=== PATIENT | female | born 1935 | race Native Hawaiian/Other Pacific Islander ===

== ENCOUNTER 2016-08-17 08:43 | Inpatient (IN) | payer OTHER | END 2016-09-17 08:00 | disposition still patient (30) | LOC: PAVA 08:43 | PROVIDERS: ADMIT Internal Medicine | DX: Z51.89 Encounter for other specified aftercare (principal) ==

== ENCOUNTER 2016-09-17 09:00 | Inpatient (IN) | payer OTHER | END 2016-10-18 08:43 | disposition still patient (30) | LOC: PAVA 09:00 | PROVIDERS: ADMIT Internal Medicine | DX: Z51.89 Encounter for other specified aftercare (principal) ==

== ENCOUNTER 2016-10-11 09:41 | Outpatient (CLI) | payer BC, OTHER | END 2016-10-11 23:40 | disposition home or self-care (01) | LOC: CT 09:41 | DX: S06.5X0A Traumatic subdural hemorrhage without loss of consciousness, initial encounter (principal) ==

== ENCOUNTER 2016-10-18 09:27 | Inpatient (IN) | payer OTHER | END 2016-11-15 08:19 | disposition still patient (30) | LOC: PAVA 09:27 | PROVIDERS: ADMIT Internal Medicine | DX: Z51.89 Encounter for other specified aftercare (principal) ==

== ENCOUNTER 2016-11-15 08:53 | Inpatient (IN) | payer OTHER | END 2016-12-16 08:03 | disposition still patient (30) | LOC: PAVA 08:53 | PROVIDERS: ADMIT Internal Medicine | DX: Z51.89 Encounter for other specified aftercare (principal) ==

== ENCOUNTER 2016-12-16 09:56 | Inpatient (IN) | payer OTHER | END 2017-01-15 08:32 | disposition still patient (30) | LOC: PAVA 09:56 | PROVIDERS: ADMIT Internal Medicine | DX: Z51.89 Encounter for other specified aftercare (principal) ==

== ENCOUNTER 2017-01-13 01:04 | Outpatient (CLI) | payer BC, OTHER | END 2017-01-13 19:06 | disposition home or self-care (01) | LOC: LAB 01:04 | DX: Z16.24 Resistance to multiple antibiotics (principal) | CPT/HCPCS: 87081 ==

== ENCOUNTER 2017-01-15 08:57 | Inpatient (IN) | payer OTHER | END 2017-02-15 08:12 | disposition still patient (30) | LOC: PAVA 08:57 | PROVIDERS: ADMIT Internal Medicine | DX: Z51.89 Encounter for other specified aftercare (principal) ==

== ENCOUNTER 2017-02-15 08:32 | Inpatient (IN) | payer OTHER | END 2017-03-17 14:58 | disposition still patient (30) | LOC: PAVA 08:32 | PROVIDERS: ADMIT Internal Medicine | DX: Z51.89 Encounter for other specified aftercare (principal) ==

== ENCOUNTER 2017-03-17 15:16 | Inpatient (IN) | payer OTHER | END 2017-04-17 08:42 | disposition still patient (30) | LOC: PAVA 15:16 | PROVIDERS: ADMIT Internal Medicine | DX: Z51.89 Encounter for other specified aftercare (principal) ==

== ENCOUNTER 2017-04-17 09:27 | Inpatient (IN) | payer OTHER | END 2017-05-18 08:13 | disposition still patient (30) | LOC: PAVA 09:27 | PROVIDERS: ADMIT Internal Medicine | DX: Z51.89 Encounter for other specified aftercare (principal) ==

== ENCOUNTER 2017-05-18 08:35 | Inpatient (IN) | payer OTHER | END 2017-06-17 09:10 | disposition still patient (30) | LOC: PAVA 08:35 | PROVIDERS: ADMIT Internal Medicine | DX: Z51.89 Encounter for other specified aftercare (principal) ==

== ENCOUNTER 2017-06-17 09:32 | Inpatient (IN) | payer OTHER | END 2017-07-18 10:26 | disposition still patient (30) | LOC: PAVA 09:32 | PROVIDERS: ADMIT Internal Medicine ==

== ENCOUNTER 2017-06-22 09:39 | Outpatient (CLI) | payer BC, OTHER ==
[2017-06-22 09:49] LABS: PLATELET COUNT 211 K/uL (152-353)
[2017-06-22 10:21] LABS: POTASSIUM 4.4 mmol/L (3.6-5.2)
== END 2017-06-22 19:08 | disposition home or self-care (01) ==
LOC: LAB 09:39
PROVIDERS: Internal Medicine
DX: I10 Essential (primary) hypertension (principal); E78.4 Other hyperlipidemia
CPT/HCPCS: 80053; 80061; 85027

== ENCOUNTER 2017-07-18 12:49 | Inpatient (IN) | payer OTHER | END 2017-08-17 08:14 | disposition still patient (30) | LOC: PAVA 12:49 | PROVIDERS: ADMIT Internal Medicine ==

== ENCOUNTER 2017-08-17 09:11 | Inpatient (IN) | payer OTHER | END 2017-09-17 08:33 | disposition still patient (30) | LOC: PAVA 09:11 | PROVIDERS: ADMIT Internal Medicine ==

== ENCOUNTER 2017-09-17 09:17 | Inpatient (IN) | payer OTHER | END 2017-10-18 08:34 | disposition still patient (30) | LOC: PAVA 09:17 | PROVIDERS: ADMIT Internal Medicine ==

== ENCOUNTER 2017-10-18 09:44 | Inpatient (IN) | payer OTHER | END 2017-11-15 08:09 | disposition still patient (30) | LOC: PAVA 09:44 | PROVIDERS: ADMIT Internal Medicine ==

== ENCOUNTER 2017-11-15 09:05 | Inpatient (IN) | payer OTHER | END 2017-12-16 08:00 | disposition still patient (30) | LOC: PAVA 09:05 | PROVIDERS: ADMIT Internal Medicine ==

== ENCOUNTER 2017-12-16 09:00 | Inpatient (IN) | payer OTHER | END 2018-01-15 08:13 | disposition still patient (30) | LOC: PAVA 09:00 | PROVIDERS: ADMIT Internal Medicine ==

== ENCOUNTER 2018-01-15 08:53 | Inpatient (IN) | payer OTHER | END 2018-02-15 08:22 | disposition still patient (30) | LOC: PAVA 08:53 | PROVIDERS: ADMIT Internal Medicine ==

== ENCOUNTER 2018-02-15 08:48 | Inpatient (IN) | payer OTHER | END 2018-03-17 14:16 | disposition still patient (30) | LOC: PAVA 08:48 | PROVIDERS: ADMIT Internal Medicine ==

== ENCOUNTER 2018-03-17 14:37 | Inpatient (IN) | payer OTHER | END 2018-04-17 08:00 | disposition still patient (30) | LOC: PAVA 14:37 | PROVIDERS: ADMIT Internal Medicine ==

== ENCOUNTER 2018-04-17 09:00 | Inpatient (IN) | payer OTHER | END 2018-05-18 09:58 | disposition still patient (30) | LOC: PAVA 09:00 | PROVIDERS: ADMIT Internal Medicine ==

== ENCOUNTER 2018-05-18 10:14 | Inpatient (IN) | payer OTHER | END 2018-06-17 08:41 | disposition still patient (30) | LOC: PAVA 10:14 | PROVIDERS: ADMIT Internal Medicine | CPT/HCPCS: 93005 ==

== ENCOUNTER 2018-06-17 09:05 | Inpatient (IN) | payer OTHER | END 2018-07-18 08:12 | disposition still patient (30) | LOC: PAVA 09:05 | PROVIDERS: ADMIT Internal Medicine ==

== ENCOUNTER 2018-07-18 08:33 | Inpatient (IN) | payer OTHER | END 2018-08-17 08:07 | disposition still patient (30) | LOC: PAVA 08:33 | PROVIDERS: ADMIT Internal Medicine ==

== ENCOUNTER 2018-08-17 08:23 | Inpatient (IN) | payer OTHER | END 2018-09-17 10:23 | disposition still patient (30) | LOC: PAVA 08:23 | PROVIDERS: ADMIT Internal Medicine ==

== ENCOUNTER 2018-09-17 11:00 | Inpatient (IN) | payer OTHER | END 2018-10-18 14:17 | disposition still patient (30) | LOC: PAVA 11:00 | PROVIDERS: ADMIT Internal Medicine ==

== ENCOUNTER 2018-09-26 18:47 | Outpatient (CLI) | payer OTHER | END 2018-09-26 19:15 | disposition home or self-care (01) | LOC: LAB 18:47 | DX: R82.998 Other abnormal findings in urine (principal) | CPT/HCPCS: 81000 ==

== ENCOUNTER 2018-10-18 14:20 | Inpatient (IN) | payer OTHER | END 2018-11-15 09:16 | disposition still patient (30) | LOC: PAVA 14:20 | PROVIDERS: ADMIT Internal Medicine ==

== ENCOUNTER 2018-11-15 10:08 | Inpatient (IN) | payer OTHER | END 2018-12-16 07:56 | disposition still patient (30) | LOC: PAVA 10:08 | PROVIDERS: ADMIT Internal Medicine ==

== ENCOUNTER 2018-12-16 08:37 | Inpatient (IN) | payer OTHER | END 2019-01-15 09:43 | disposition still patient (30) | LOC: PAVA 08:37 | PROVIDERS: ADMIT Internal Medicine ==

== ENCOUNTER 2019-01-15 11:05 | Inpatient (IN) | payer OTHER | END 2019-02-15 08:14 | disposition still patient (30) | LOC: PAVA 11:05 | PROVIDERS: ADMIT Internal Medicine | DX: Z51.89 Encounter for other specified aftercare (principal) ==

== ENCOUNTER 2019-02-15 08:31 | Inpatient (IN) | payer OTHER | END 2019-03-17 08:31 | disposition still patient (30) | LOC: PAVA 08:31 | PROVIDERS: ADMIT Internal Medicine ==

== ENCOUNTER 2019-02-27 04:46 | Outpatient (CLI) | payer BC ==
[2019-02-27 06:29] LABS: PLATELET COUNT 227 K/uL (152-353)
[2019-02-27 06:39] LABS: POTASSIUM 4.5 mmol/L (3.6-5.2)
== END 2019-02-27 18:00 | disposition home or self-care (01) ==
LOC: LAB 04:46
PROVIDERS: Internal Medicine
DX: I10 Essential (primary) hypertension (principal); E78.49 Other hyperlipidemia; Z79.899 Other long term (current) drug therapy
CPT/HCPCS: 80053; 80061; 82306; 82607; 83540; 84443; 85027

== ENCOUNTER 2019-03-17 09:22 | Inpatient (IN) | payer OTHER | END 2019-04-17 09:09 | disposition still patient (30) | LOC: PAVA 09:22 | PROVIDERS: ADMIT Internal Medicine ==

== ENCOUNTER 2019-03-31 10:33 | Outpatient (CLI) | payer BC | END 2019-03-31 22:47 | disposition home or self-care (01) | LOC: RAD 10:33 | DX: Z13.820 Encounter for screening for osteoporosis (principal) ==

== ENCOUNTER 2019-04-17 10:17 | Inpatient (IN) | payer OTHER | END 2019-05-18 16:00 | disposition still patient (30) | LOC: PAVA 10:17 | PROVIDERS: ADMIT Internal Medicine ==

== ENCOUNTER 2019-05-18 16:06 | Inpatient (IN) | payer OTHER | END 2019-06-17 08:07 | disposition still patient (30) | LOC: PAVA 16:06 | PROVIDERS: ADMIT Internal Medicine ==

== ENCOUNTER 2019-05-30 01:35 | Outpatient (CLI) | payer BC, OTHER | END 2019-05-30 22:56 | disposition home or self-care (01) | LOC: LAB 01:35 | DX: E55.9 Vitamin D deficiency, unspecified (principal) | CPT/HCPCS: 82306 ==

== ENCOUNTER 2019-06-17 09:16 | Inpatient (IN) | payer OTHER | END 2019-07-18 09:04 | disposition still patient (30) | LOC: PAVA 09:16 | PROVIDERS: ADMIT Internal Medicine ==

== ENCOUNTER 2019-07-18 11:04 | Inpatient (IN) | payer OTHER | END 2019-08-17 08:00 | disposition still patient (30) | LOC: PAVA 11:04 | PROVIDERS: ADMIT Internal Medicine ==

== ENCOUNTER 2019-08-17 09:00 | Inpatient (IN) | payer OTHER | END 2019-09-17 08:00 | disposition still patient (30) | LOC: PAVA 09:00 | PROVIDERS: ADMIT Internal Medicine ==

== ENCOUNTER 2019-08-19 06:36 | Outpatient (CLI) | payer BC, OTHER ==
[2019-08-19 07:30] LABS: PLATELET COUNT 199 K/uL (152-353)
[2019-08-19 07:41] LABS: POTASSIUM 3.9 mmol/L (3.6-5.2)
== END 2019-08-19 20:13 | disposition home or self-care (01) ==
LOC: LAB 06:36
PROVIDERS: Internal Medicine
DX: I10 Essential (primary) hypertension (principal)
CPT/HCPCS: 80053; 85027

== ENCOUNTER 2019-09-17 08:30 | Inpatient (IN) | payer OTHER | END 2019-10-18 09:32 | disposition still patient (30) | LOC: PAVA 08:30 | PROVIDERS: ADMIT Internal Medicine ==

== ENCOUNTER 2019-10-18 09:51 | Inpatient (IN) | payer OTHER | END 2019-11-16 12:46 | disposition still patient (30) | LOC: PAVA 09:51 | PROVIDERS: ADMIT Internal Medicine ==

== ENCOUNTER 2019-11-16 13:07 | Inpatient (IN) | payer OTHER | END 2019-12-06 17:45 | disposition E | LOC: PAVA 13:07 | PROVIDERS: ADMIT Internal Medicine ==